=== PATIENT | male | born 1975 | race Two or more races ===

== ENCOUNTER 2019-01-02 22:28 | Emergency (ER) | payer SELFPAY ==
[~2019-01-02] VITALS: Ht 172.7 cm; Wt 86.2 kg
[2019-01-02 22:28] VITALS: BP 146/93
[2019-01-02] MEDS ORDERED: levETIRAcetam 1,000mg/NS100ml 100 ML IVPB ONE (22:45)
[2019-01-02 23:12] LABS: ANION GAP 10 mmol/L (5-15); BLOOD UREA NITROGEN 8 mg/dL (7-18); CALCIUM 9.1 MG/DL (8.5-10.1); CARBON DIOXIDE 27 MMOL/L (21-32); CHLORIDE 101 MMOL/L (98-107); CREATININE 0.8 MG/DL (0.55-1.30); POTASSIUM 3.6 MMOL/L (3.5-5.1); SODIUM 138 MMOL/L (136-145)
[2019-01-02] MEDS ORDERED: Morphine Sulfate 4mg/ml Inj (IV USE ONLY) IVP ONE (23:15)
[2019-01-02 23:16] LABS: HEMATOCRIT 31.4 % (42.0-52.0); HEMOGLOBIN 10.3 G/DL (14.2-18.0); MEAN CORPUSCULAR VOLUME 81 FL (80-99); PLATELET COUNT 82 K/UL (150-450); WHITE BLOOD COUNT 6.7 K/UL (4.8-10.8)
[2019-01-03] MEDS ORDERED: KEPPRA500 M4 ORAL (02:07)
--- NOTE | 2019-01-03 02:08 | Emergency Room Report ---
History of Present Illness General Chief Complaint: Seizure Source: Patient Present Illness HPI Is a 43-year-old male with history of seizure. He presents with chief complaint of a seizure. He was on his way home from work. He was on the bus and had a tonic-clonic seizure activity lasting for a few minutes. 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 He did hit his head against one of them railing. On arrival, per EMS his postictal. No other trauma. Patient did say that he has a history of seizure. He said he finished his seizure medication 4 days ago. No nausea no vomiting. No fever chills but no other complaint. Initial history is limited because of his postictal period. Allergies: Coded Allergies: UNABLE TO ASSESS (Unverified , 01/02/19) Patient History Past Medical History: see triage record, old chart reviewed Past Surgical History: none Pertinent Family History: none Social History: Denies: smoking Immunizations: other Reviewed Nursing Documentation: PMH: Agreed; PSxH: Agreed Nursing Documentation-PMH Hx Seizures: Yes Review of Systems Eye: Denies: eye pain, blurred vision ENT: Denies: ear pain, nose congestion, throat swelling Respiratory: Denies: cough, shortness of breath Cardiovascular: Denies: chest pain, palpitations Gastrointestinal: Denies: abdominal pain, diarrhea, nausea, vomiting Musculoskeletal: Denies: back pain, joint pain Skin: Denies: rash Neurological: Denies: headache, numbness Endocrine: Denies: increased thirst, increased urine Hematologic/Lymphatic: Denies: easy bruising All Other Systems: negative except mentioned in HPI Physical Exam Vital Signs Date Time Temp Pulse Resp B/P (MAP) Pulse Ox O2 Delivery O2 Flow Rate FiO2 01/02/19 22:28 98.1 95 16 146/93 98 Room Air vitals normal Sp02 EP Interpretation: reviewed, normal General Appearance: well appearing, no apparent distress, other - Postictal Head: normocephalic, other - 2 cm lac just above right eyebrow Eyes: bilateral eye PERRL, bilateral eye EOMI ENT: hearing grossly normal, normal pharynx Neck: full range of motion, supple, no meningismus Respiratory: chest non-tender, lungs clear, normal breath sounds Cardiovascular #1: regular rate, rhythm, no murmur Gastrointestinal: normal bowel sounds, non tender, no mass, no organomegaly, no bruit, non-distended Musculoskeletal: back normal, gait/station normal, normal range of motion Psychiatric: mood/affect normal Skin: warm/dry Procedures Laceration/Wound Repair Laceration/Wound Repair : Consent: Verbal Wound Location: face Wound's Depth, Shape: linear, irregular Wound Length (cm): 2 Wound Explored: clean Irrigated w/ Saline (ccs): 500 Betadine Prep?: Yes Anesthesia: Lidocaine w/ Epi Volume Anesthetic (ccs): 3 Wound Repaired With: sutures Suture Size/Type: 5:0, other - Chromic Number of Sutures: 3 Patient Tolerated: Well Complications: None Medical Decision Making Diagnostic Impression: Primary Impression: Seizure disorder Additional Impressions: Laceration of eyebrow, right Qualified Codes: S01.111A - Laceration without foreign body of right eyelid and periocular area, initial encounter Thrombocytopenia ER Course Patient presents with a seizure. I suspect that he is out of his seizure medication. No evidence of intracranial bleed or skull fracture. He is back to baseline now. patient does not drive. We'll discharge home. CT/MRI/US Diagnostic Results CT/MRI/US Diagnostic Results : Imaging Test Ordered: CT head Impression Read by radiologist. 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 No acute process. Last Vital Signs Date Time Temp Pulse Resp B/P (MAP) Pulse Ox O2 Delivery O2 Flow Rate FiO2 01/02/19 22:28 96 16 Room Air 01/02/19 22:28 98.1 160/100 (120) 98 Status: improved Disposition: HOME, SELF-CARE Condition: Stable Scripts Levetiracetam (KEPPRA) 500 Mg Tablet 500 MG ORAL EVERY 12 HOURS, #60 TAB 0 Refills Prov: Faisal Ayala MD 01/03/19 Patient Instructions: Seizure, Adult Additional Instructions: Follow-up with your DrCameron 7 days. Return if worse. Faisal Ayala MD Jan 03, 2019 02:08
[2019-01-03 02:20] VITALS: BP 143/91
[2019-01-03 04:45] VITALS: BP 142/93
[2019-01-03 05:27] VITALS: BP 138/90
--- NOTE | 2019-01-03 09:56 | Diagnostic Imaging Report ---
Indication: Head trauma headache Technique: Contiguous 5 mm thick transaxial imaging of the head obtained in a Siemens Sensation [address] scanner. Soft tissue and bone windows generated. Automatic Exposure Control was utilized. Total Dose length Product (DLP): 1411.[address] Dose Index Volume (CTDIvol): 70.38 mGy Comparison: none Findings: There is bifrontal encephalomalacia and left temporal encephalomalacia most likely on the basis of previous trauma. This is characterized by cortical volume loss and low attenuation of cortical tissue and subcortical white matter. There is mild prominence of the ventricles, basal cisterns, and cerebral sulci consistent with atrophy. Mild, nonspecific, white matter hypoattenuation is noted throughout the brain consistent with chronic small vessel disease. There is no midline shift, edema, acute hemorrhage, mass effect, or abnormal extra-axial fluid collections. Bones are unremarkable. There is evidence of a mild scalp contusion with the right frontal soft tissue swelling. Impression: No acute intracranial bleed, mass effect or edema. Bifrontal left temporal atrophy likely on the basis of prior trauma. Mild atrophy of the brain. Nonspecific white matter hypoattenuation probably due to chronic small vessel disease. Mild scalp contusion. The CT scanner at [facility] is accredited by the [employer] and the scans are performed using dose optimization techniques as appropriate to a performed exam including Automatic Exposure control.
== END 2019-01-03 05:30 | disposition home or self-care (01) ==
LOC: EDBD 22:28 → EMR 23:00
DX: G40.409 Other generalized epilepsy and epileptic syndromes, not intractable, without status epilepticus (principal); S01.111A Laceration without foreign body of right eyelid and periocular area, initial encounter; W22.8XXA Striking against or struck by other objects, initial encounter; Y92.811 Bus as the place of occurrence of the external cause; D69.6 Thrombocytopenia, unspecified
CPT/HCPCS: 12011; 36415; 70450; 80048; 85007; 85025; 96374; 99284; G0480; J1953; 80329

== ENCOUNTER 2020-06-23 10:21 | Emergency (ER) | payer SELFPAY ==
[~2020-06-23] VITALS: Ht 175.3 cm; Wt 81.6 kg
[~2020-06-23 10:21] MED LIST: KEPPRA500 M4 ORAL
[2020-06-23 10:36] VITALS: BP 154/88
--- NOTE | 2020-06-23 10:38 | NUR ---
ED Nurse Note:pt. was BIBA from the street with ETOH, VSS, confused
--- NOTE | 2020-06-23 11:12 | NUR ---
ED Nurse Note:pt. got off the stretcher and eloped from the ED
--- NOTE | 2020-06-23 15:48 | Emergency Room Report ---
History of Present Illness General Chief Complaint: Alcohol Intoxication Source: EMS Present Illness HPI 46M BIBA for alcohol intoxication. Patient has no complaints at this time and is requesting to leave. According to EMS, they were notified to eval patient from [facility]. Patient denies WOOTEN, head trauma, neck pain, vision changes, rash, fever, cough, CP, SOB, melena, hematochezia, ataxia, or any symptoms. The patient's symptoms were gradual onset, severity was moderate, duration since 1 day. Quality: denies pain Past medical history: Denies Past surgical history: Denies Smoking: Denies Alcohol use: ++ Drug use: Denies Review of systems: CONST: No fevers or chills, No night sweats PULMONARY: No productive cough, No shortness of breath CARDIAC: No chest pain, No palpitations GI: No vomiting, No diarrhea , No melena_or_BRBPR : No dysuria, No hematuria, No discharge NEURO: No new_focal_weakness_or_numbness, No confusion, No vision changes 14 point Review of Systems is otherwise negative except per HPI Physical Exam: GENERAL: Awake_alert_ nontoxic, no acute distress Spo2 98% on RA -normal EYES: Extraocular muscles are intact. Conjunctivae clear. Lids without swelling. No nystagmus ENT: External nose and ear normal_in_appearance. Oropharynx clear. Head_atraumatic, Moist_oral_mucosa. No midface instablity No nasal septal hematoma NECK: No JVD. No meningismus. No thyromegaly. Supple. Trachea midline RESP: Normal respiratory effort. Symmetric rise. No stridor. Clear_to_auscultation_No_rales_No_wheezes CARDIAC: Regular rate and regular rhytm. No_significant pedal edema. ABDOMEN: Soft. Nondistended. Nontender_No_rebound_or_guarding. MSK: Normal muscle tone, without rigidity. Extremities without asymmetric deformity or swelling. SKIN: Warm and dry. No visible cyanosis or pallor NEUROLOGIC: Alert, oriented x3. Motor_and_sensation_grossly_intact. No truncal ataxia. Gait_normal Psych: Normal mood and affect, normal judgment and insight - COORDINATION OF CARE Case was discussed with: Patient Medical Decision Making/Plan: Differential diagnosis includes alcohol intoxication, alcohol withdrawal, hypoglycemia, drug intoxication or overdose, head injury, among others. Upon arrival the patients fingerstick glucose was normal with no evidence of hypoglycemia. He is neurologically intact, clinically sober, and is requesting to leave. He denies pain at this time. He was brought in as a Garcia but was able to tell me his name and date of . A Telecommunicator consult was offered to the ed connor prior to discharge but the patient declined. All needs were met during this ED visit including food and water, change of clothes, half-way referral/resources, and transportation. The patient has no evidence of injury or tenderness of the head or neck, thus immediate imaging of the brain and spine was not felt to be necessary. The patient has no significant tremors or tachycardia, and their presentation seems most consistent with alcohol intoxication without withdrawal. The patient will be observed in the emergency department with serial neurologic exams for improvement in their mental status. - REASSESSMENT - After serial neurologic exams in the emergency department, the patients mental status significantly improved. The patient was able to follow commands and is clinically sober. They have no focal neurologic deficits and were able to ambulate with a steady gait without assistance. The patients presentation seems to be consistent with alcohol intoxication, which has resolved, without any complications such as alcohol withdrawal, head injury, GI bleeding, or intracranial bleeding. The patient appears to be safe for discharge home. Patient understands not to drive and appears able to care for themselves. 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 Nursing Documentation-[facility] Past Medical History: No History, Except For Physical Exam Vital Signs Date Time Temp Pulse Resp B/P (MAP) Pulse Ox O2 Delivery O2 Flow Rate FiO2 06/23/20 10:24 97.9 96 18 154/88 (110) 98 Room Air Sp02 EP Interpretation: reviewed, normal Medical Decision Making Diagnostic Impression: Primary Impression: Acute alcoholic intoxication Last Vital Signs Date Time Temp Pulse Resp B/P (MAP) Pulse Ox O2 Delivery O2 Flow Rate FiO2 06/23/20 11:15 95 06/23/20 10:36 18 Room Air 06/23/20 10:36 97.9 154/88 98 Disposition: HOME, SELF-CARE Admit Decision Time: 11:15 Condition: Stable Referrals: NOT CHOSEN IPA/MD,REFERRING (PCP) Additional Instructions: Instructions for patient/assistant branch operations manager: Follow up with your physician in 1-2 days. Stop abusing alcohol. Follow-up with your doctor sooner if your condition requires a more timely clinical reevaluation. Return to the emergency department immediately if you feel that your condition is worsening or if you have any new or concerning symptoms. Review your discharge instructions and take any prescriptions given as instructed. [facility] PROVIDES FREE OR LOW-COST HEALTH SERVICES TO PEOPLE WHO CAN SHOW PROOF THAT THEY LIVE IN [facility]. TO FIND MORE CLINICS PARTNERED WITH [facility] TO PROVIDE SERVICE, PLEASE CALL . Raquel Schwartz D.O. Jun 23, 2020 15:48
== END 2020-06-23 11:20 | disposition left against medical advice (07) ==
LOC: EDBD → MERGE 10:45 → EMR 10:45
DX: F10.129 Alcohol abuse with intoxication, unspecified (principal); Y90.9 Presence of alcohol in blood, level not specified
CPT/HCPCS: 99282

== ENCOUNTER 2020-06-23 14:13 | Emergency (ER) | payer SELFPAY ==
[~2020-06-23] VITALS: Ht 175.3 cm; Wt 86.2 kg
[2020-06-23 14:28] VITALS: BP 151/85
[2020-06-23 15:25] LABS: ANION GAP 10 mmol/L (5-15); BLOOD UREA NITROGEN 10 mg/dL (7-18); CALCIUM 8.8 MG/DL (8.5-10.1); CARBON DIOXIDE 27 MMOL/L (21-32); CHLORIDE 101 MMOL/L (98-107); CREATININE 0.8 MG/DL (0.55-1.30); POTASSIUM 3.7 MMOL/L (3.5-5.1); SODIUM 138 MMOL/L (136-145)
[2020-06-23 15:27] LABS: HEMATOCRIT 37.5 % (42.0-52.0); MEAN CORPUSCULAR VOLUME 89 FL (80-99); PLATELET COUNT 96 K/UL (150-450); RED BLOOD COUNT 4.22 M/UL (4.70-6.10); RED CELL DISTRIBUTION WIDTH 15.9 % (11.6-14.8); WHITE BLOOD COUNT 8.6 K/UL (4.8-10.8)
[2020-06-23 15:38] LABS: ALANINE AMINOTRANSFERASE 108 U/L (12-78); ALBUMIN 3.8 G/DL (3.4-5.0); ALBUMIN/GLOBULIN RATIO 0.8 (1.0-2.7); ALKALINE PHOSPHATASE 94 U/L (46-116); ASPARTATE AMINO TRANSFERASE 107 U/L (15-37); BILIRUBIN,TOTAL 1.3 MG/DL (0.2-1.0)
[2020-06-23 15:40] LABS: BILIRUBIN,DIRECT 0.3 MG/DL (0.0-0.3)
--- NOTE | 2020-06-23 16:16 | Diagnostic Imaging Report ---
Indication: Chest pain Technique: One view of the chest Comparison: none Findings: Lungs and pleural spaces are clear. Heart size is normal. Impression: No acute process
--- NOTE | 2020-06-23 18:24 | Diagnostic Imaging Report ---
EXAM: CT Head Without Intravenous Contrast CLINICAL HISTORY: ALOC TECHNIQUE: Axial computed tomography images of the head/brain without intravenous contrast. CTDI is 53.4 mGy and DLP is 1053.6 mGy-cm. One or more of the following dose reduction techniques were used: automated exposure control, adjustment of the mA and/or kV according to patient size, use of iterative reconstruction technique. COMPARISON: Comparison head CT 01/02/2019. FINDINGS: Again noted is bifrontal encephalomalacia and left temporal encephalomalacia likely sequela of prior chronic trauma. Chronic appearing volume loss with low attenuation in the cortical tissue and subcortical white matter again noted. Stable diffuse atrophy. Mild white matter small vessel ischemic changes again noted. No intracranial hemorrhage. No midline shift or evidence of edema. No extra-axial fluid collection. No hemorrhage. No significant white matter disease. No edema. No acute fracture. Stable chronic appearing right occipital fracture. Large left frontal--parietal scalp hematoma/contusion. The paranasal sinuses and mastoid air cells are clear. IMPRESSION: 1. No acute intracranial traumatic process. 2. Large left frontal--parietal scalp hematoma/contusion. 3. Chronic appearing bilateral and left temporal encephalomalacia along with volume loss, suggesting sequela of prior trauma.
[2020-06-23 18:34] VITALS: BP 151/85
--- NOTE | 2020-06-23 18:34 | Emergency Room Report ---
History of Present Illness General Chief Complaint: Alcohol Intoxication Source: Patient (Connie Mendes) Present Illness HPI 46-year-old male with history of back intoxication brought in by paramedics from a parking lot with many empty bottles of beer. Patient appears to be slightly altered. Not a good historian at this time. Appears to be atraumatic. (Connie Mendes) Allergies: Coded Allergies: No Known Allergies (Unverified , 06/23/20) UNABLE TO ASSESS (Unverified , 01/02/19) COVID-19 Screening Contact w/high risk pt: No Experienced COVID-19 symptoms?: No COVID-19 Testing performed SOFT WATER MECHANIC: No (Connie Mendes) Patient History Past Surgical History: none Pertinent Family History: none Immunizations: UTD Reviewed Nursing Documentation: PMH: Agreed; PSxH: Agreed (Connie Mendes) Nursing Documentation-PMH Past Medical History: No History, Except For Hx Seizures: Yes (Connie Mendes) Review of Systems All Other Systems: negative except mentioned in HPI (Connie Mendes) Physical Exam Vital Signs Date Time Temp Pulse Resp B/P (MAP) Pulse Ox O2 Delivery O2 Flow Rate FiO2 06/23/20 14:18 98.1 93 18 151/85 (107) 98 Room Air Sp02 EP Interpretation: reviewed, normal General Appearance: mild distress Head: normocephalic, atraumatic Eyes: bilateral eye normal inspection, bilateral eye PERRL ENT: hearing grossly normal, normal pharynx, no angioedema, normal voice Neck: full range of motion, supple/symm/no masses Respiratory: normal inspection Cardiovascular #1: normal inspection, regular rate, rhythm Gastrointestinal: soft Musculoskeletal: back normal Neurologic: alert, motor strength/tone normal, oriented x3, sensory intact, responsive, speech normal Psychiatric: memory normal Skin: no rash Lymphatic: no adenopathy (Connie Mendes) Medical Decision Making PA Attestation All diagnoses and treatment plans were reviewed and discussed with my supervising physician Dr. Olivier (Connie Mendes) Diagnostic Impression: Primary Impression: Acute alcoholic intoxication Additional Impression: Altered behavior ER Course 46-year-old male with history of back intoxication brought in by paramedics from a parking lot with many empty bottles of beer. Patient appears to be slightly altered. Not a good historian at this time. Appears to be atraumatic. Ddx considered but are not limited to: Alcohol intoxication with altered level of consciousness, alcohol intoxication causing pancreatitis, alcohol abuse, multi drug use and alcohol intoxication Vital signs: are WNL, pt. is afebrile H&PE are most consistent with: acute alcohol intoxication, altered behavior ORDERS: CMP CBC, UA, tox screen screen, chest x-ray ER intervention: NS bolus DISCHARGE: At this time pt. is stable for d/c to home. Will provide printed patient care instructions, and any necessary prescriptions. Care plan and follow up instructions have been discussed with the patient prior to discharge. After several hours of being here patient was alert and able to address and remember his name and was ambulatory and was discharged. Advised patient to avoid drinking alcohol return to the emergency room worsening symptoms. (Connie Mendes) CT/MRI/US Diagnostic Results CT/MRI/US Diagnostic Results : Imaging Test Ordered: Head CT Impression FINDINGS: Again noted is bifrontal encephalomalacia and left temporal encephalomalacia likely sequela of prior chronic trauma. Chronic appearing volume loss with low attenuation in the cortical tissue and subcortical white matter again noted. Stable diffuse atrophy. Mild white matter small vessel ischemic changes again noted. No intracranial hemorrhage. No midline shift or evidence of edema. No extra-axial fluid collection. No hemorrhage. No significant white matter disease. No edema. No acute fracture. Stable chronic appearing right occipital fracture. Large left frontal--parietal scalp hematoma/contusion. The paranasal sinuses and mastoid air cells are clear. IMPRESSION: 1. No acute intracranial traumatic process. 2. Large left frontal--parietal scalp hematoma/contusion. 3. Chronic appearing bilateral and left temporal encephalomalacia along with volume loss, suggesting sequela of prior trauma. (Connie Mendes) Last Vital Signs Date Time Temp Pulse Resp B/P (MAP) Pulse Ox O2 Delivery O2 Flow Rate FiO2 06/23/20 14:28 93 18 Room Air 06/23/20 14:28 98.1 151/85 98 (Connie Mendes) Disposition: HOME, SELF-CARE Condition: Stable Referrals: NOT CHOSEN IPA/,REFERRING (PCP) Patient Instructions: Alcohol Abuse and Nutrition Additional Instructions: Avoid taking alcohol, follow primary care provider, if worsening symptom return to the emergency room Connie Mendes Jun 23, 2020 18:34 Bryan Olivier MD Jun 24, 2020 04:08
== END 2020-06-23 18:35 | disposition home or self-care (01) ==
LOC: EMR 14:47
DX: F10.129 Alcohol abuse with intoxication, unspecified (principal); R41.82 Altered mental status, unspecified; G40.909 Epilepsy, unspecified, not intractable, without status epilepticus; Y90.9 Presence of alcohol in blood, level not specified
CPT/HCPCS: 36415; 70450; 71045; 80053; 82248; 85007; 85025; 96361; 96374; 96375; 99284; G0480; J2405; J7030; S0028